=== PATIENT | male | born 1950 | race Hispanic/Latino ===

== ENCOUNTER 2019-05-16 08:53 | Observation (INO) | payer MEDICARE ==
[~2019-05-16] VITALS: Ht 170.2 cm; Wt 108.9 kg
[2019-05-16] MEDS ORDERED: AUGMENTIN 875-1 EACH PO (09:20)
--- NOTE | 2019-05-16 11:00 | NUR ---
PT TO BE ADMITTED, PT AND FAMILY AWARE OF POC, PT VOICES NO COMPLAINTS AT THIS TIME, VITAL SIGNS STABLE
--- OUTSIDE RECORDS SUMMARY | 2019-05-16 11:28 | XMS REPORT ---
Author Author [facility] Address Unknown Phone Unavailable Care Team Providers Care Automatic Outsole Cutter Name Role Phone Unavailable Unavailable Problems This patient has no known problems. Allergies, Adverse Reactions, Alerts This patient has no known allergies or adverse reactions. Medications This patient has no known medications. Encounters Start Date/Time End Date/Time Encounter Type Admission Type Attending Clinicians Care Facility Care Department Encounter ID 2019-05-15 00:00:00 2019-05-15 00:00:00 Emergency E [facility] [id number]
[2019-05-16] MEDS ORDERED: ONDANSETRON HCL INJ 2MG/ML 2ML 2 MG/ML VIAL IV PRN (11:30)
--- NOTE | 2019-05-16 11:36 | NUR ---
[facility] CALLED FOR TRANSPORT 30 MINUTE ETA
--- NOTE | 2019-05-16 12:12 | NUR ---
REPORT TO MAGDY BURDEN REPORT TO [facility] ALL QUESTIONS ANSWERED
--- NOTE | 2019-05-16 12:43 | NUR ---
pt arrived to room 290, awake, alert, ambulating, no signs of distress, will continue to monitor.
[2019-05-16 12:46] VITALS: BP 167/90
[2019-05-16 12:49] VITALS: BP 167/90
[2019-05-16] MEDS ORDERED: PLAVIX75 MG PO (13:50)
[2019-05-16] MEDS ORDERED: TRICOR48 MG PO (13:50)
[2019-05-16] MEDS ORDERED: ISORDIL40 MG PO (13:50)
[2019-05-16] MEDS ORDERED: VITAMIN D35000 UNIT PO (13:50)
[2019-05-16] MEDS ORDERED: ATORVASTATIN CA20 MG PO (13:50)
[2019-05-16] MEDS ORDERED: ASPIRIN325 MG PO (13:50)
[2019-05-16] MEDS ORDERED: RANITIDINE HCL150 MG PO (13:50)
[2019-05-16 15:24] LABS: BASOPHILS % 0.6 % (0.0-1.0); EOSINOPHILS # (AUTO) 0.3 (0.0-0.4); EOSINOPHILS % 4.4 % (0.0-6.0); HEMATOCRIT 39.9 % (38.2-49.6); HEMOGLOBIN 13.6 g/dL (14.0-18.0); LYMPHOCYTES # (AUTO) 1.4 (1.0-3.2); LYMPHOCYTES % 22.4 % (18.0-39.1); MEAN CORPUSCULAR HEMOGLOBIN 31.4 pg (28-32); MEAN CORPUSCULAR HGB CONC 34.1 g/dL (31-35); MEAN CORPUSCULAR VOLUME 92.1 fL (81-99); MONOCYTES # (AUTO) 0.4 (0.2-0.8); MONOCYTES % 6.1 % (4.4-11.3); NEUTROPHILS # (AUTO) 4.3 (2.1-6.9); NEUTROPHILS % 66.2 % (38.7-80.0); PLATELET COUNT 202 x10e3/uL (140-360); RED BLOOD COUNT 4.33 x10e6/uL (4.3-5.7); RED CELL DISTRIBUTION WIDTH 12.6 % (11.7-14.4)
[2019-05-16 15:34] LABS: INR 1.01; PROTHROMBIN TIME 13.8 seconds (11.9-14.5)
[2019-05-16 15:35] LABS: PARTIAL THROMBOPLASTIN TIME 34.9 seconds (23.8-35.5)
--- NOTE | 2019-05-16 15:39 | NUR ---
Dr. Baca informed of pt's elevated blood pressure 184/98; Keven restarted pt's Isordil and ordered PRN PO pain medication. Doctor states to treat pain first and recheck blood pressure afterwards, prior to giving PRN Clonidine.
[2019-05-16 15:45] VITALS: BP 184/98
[2019-05-16] MEDS ORDERED: ACETAMINOPHEN 325 MG TAB PO PRN (16:00)
[2019-05-16] MEDS: ACETAMINOPHEN/CODEINE 300MG - 30MG TAB PO PRN ×2 (16:16→20:50)
[2019-05-16] MEDS: ISOSORBIDE DINITRATE 20 MG TAB PO SCH ×2 (16:16→21:00)
[2019-05-16 17:13] VITALS: BP 154/94
--- NOTE | 2019-05-16 18:47 | History and Physical ---
PRIMARY CARE PHYSICIAN: Vinnie Johns at [facility]. CHIEF COMPLAINT: Nosebleed. HISTORY OF PRESENT ILLNESS: This is a 69-year-old male with past medical history of high cholesterol, CAD and GERD, presented to the ER with complaints of epistaxis that started around 3:00 a.m. this morning. According to the patient, had similar problem on Tuesday about two days ago where he started the nosebleed around 10:00 p.m., went to [facility], but bleeding had resolved by 5:00 a.m., so no further intervention was needed and was sent home to follow up in the ER if the nosebleeds again. He denies any fever, chills, nausea, vomiting, dizziness, shortness of breath or palpitations. He denies any trauma to the nose. No recent seasonal allergy problems, sneezing or drying nose. At the [facility] ER, packing was inserted and was transferred here for further evaluation and management. PAST MEDICAL HISTORY: 1. High cholesterol. 2. CAD status post stent x3. 3. Gastroesophageal reflux disease. PAST SURGICAL HISTORY: 1. Cataract to both eyes. 2. Hernia repair, umbilical. 3. Left heart catheterization. FAMILY MEDICAL HISTORY: Father of lung cancer and mother of diabetes complications. SOCIAL HISTORY: He reports smoking, taking one and a half packs a day. He drinks 3 to 4 beers every week and denies any illicit drug use. ALLERGIES: HE HAS NO KNOWN DRUG ALLERGIES. REVIEW OF SYSTEMS: GENERAL: Headache. HEENT: Headache with nosebleeds and left facial tenderness due to pressure from the packing. LUNGS: No cough or shortness of breath. CARDIOVASCULAR: No chest pain or palpitation. GI: No nausea or vomiting. NEURO: No dizziness. MUSCULOSKELETAL: Moves all extremities. SKIN: Dry and intact. PHYSICAL EXAMINATION: VITAL SIGNS: Temperature is 97.4, pulse is 75, respirations 18, blood pressure is 184/98, pulse ox is 99% on room air. GENERAL: No acute distress. HEENT: Left nasal epistaxis. Left facial tenderness due to pressure. NECK: Supple and midline. LUNGS: Clear to auscultation. HEART: Regular rate and rhythm. GI: Soft and nontender. NEUROLOGIC: Alert, awake, and oriented x3. MUSCULOSKELETAL: Moves all extremities. SKIN: Dry and intact. PSYCH: Calm. LABORATORY DATA: WBC 6.43, hemoglobin 13.6, hematocrit 39.9, and platelet is 202. PT 13.8, INR 1.01, APTT 34.9. EKG; normal sinus rhythm. IMPRESSION AND PLAN: 1. Epistaxis. Packing applied. ENT consulted. Monitor hemoglobin and PT/INR. 2. Accelerated hypertension. The patient and family denies any history of high blood pressure. We will treat with clonidine 0.1 mg as needed. 3. HLD, continue on Lipitor. 4. History of coronary artery disease. Continue Isordil 10 mg p.o. t.i.d. We will hold Plavix and aspirin due to his bleeding. 5. Tobacco abuse. He refused nicotine patch. Cessation discussed. 6. Deep vein thrombosis prophylaxis. No chemical anticoagulation due to acute bleeding. Dictated by LIVIA Gallegos Jaguar Baca MD MY/MODL /[id number] Seen and examined, updated at the bedside. Agree with the findings and plan as documented by LIVIA Villalobos. JOED
--- NOTE | 2019-05-16 19:12 | Consultation ---
DATE OF CONSULTATION: 05/16/2019 Hospital Consultation HISTORY OF PRESENT ILLNESS: I was kindly asked to see this 69-year-old man for evaluation of epistaxis. The patient initially presented to [facility], but the bleeding has stopped spontaneously and he was discharged without treatment. The bleeding then recurred and he was seen at the [facility] where his nose was packed with a rhino rocket and he had persistent bleeding around the packing and he was then transferred to the hospital for admission. His blood pressure was slightly elevated and responded to medical therapy. After admission, his hemoglobin was in the 13 range. PAST MEDICAL HISTORY: Reviewed in detail in the chart. He does not have a history of hypertension prior to this episode. PAST SURGICAL HISTORY: Reviewed in detail in the chart. REVIEW OF SYSTEMS: Otolaryngology review of system sis pertinent for hearing loss. PHYSICAL EXAMINATION: The tympanic membranes and external auditory canals are unremarkable. There is a packing placed in the left side of his nose. There is no bleeding along the posterior pharyngeal wall. There is no palpable cervical adenopathy. The nasal packing was removed. Bleeding points were identified along the floor of the nasal septum in the midportion of the nasal septum. After application of 2% Pontocaine, these were cauterized with silver nitrate. On fiberoptic diagnostic rhinoscopy there was noted to be nasal septal deviation toward the right. No additional bleeding points were identified. The paranasal sinuses were quiescent. ASSESSMENT: 1. Epistaxis. 2. Nasal septal deviation. PLAN: 1. [place] nasal spray two puffs each side of nose t.i.d. 2. Neosporin ointment to each nostril t.i.d. 3. Afrin nasal spray two puffs each side of nose b.i.d. four doses. 4. Follow up H and H in a.m. MD KATI Lea/KATERIN /[id number]
[2019-05-16 20:00] VITALS: BP 194/119
--- NOTE | 2019-05-16 20:08 | NUR ---
Spoke with Dr. Flores regarding Pt c/o continue nasal bleeding, heavier than previously. Dr. Flores informed to tell Pt to blow his nose x3, then spray x3 Afrin sprays in each nostril, wait 3 mins. and repeat sprays.
[2019-05-16] MEDS: CLONIDINE HCL 0.1 MG TAB PO PRN (20:15)
--- NOTE | 2019-05-16 20:40 | NUR ---
Nasal bleeding continues. Dr Flores visits Pt and applies nasal balloon. Instructed nurse to monitor balloon and inform doctor of any health changes.
[2019-05-16 21:00] VITALS: BP 194/119
[2019-05-16] MEDS: SALINE 0.65% NAS SOLN 1 SPRAY BTL SCH ×2 (21:00→22:00)
[2019-05-16] MEDS ORDERED: ISOSORBIDE DINITRATE 10 MG PO SCH (21:00)
[2019-05-16] MEDS: ATORVASTATIN 20 MG TAB PO SCH (21:00)
[2019-05-16] MEDS: NEOMYCIN/POLYMYXIN/BACITRACIN 15 GM TUBE TOP SCH (21:00)
[2019-05-16] MEDS: OXYMETAZOLINE HCL 0.05% NAS 1 SPRAY BTL SCH (21:00)
[2019-05-17] VITALS (8 sets, daily range): BP systolic 97–171; BP diastolic 55–93
[2019-05-17] MEDS: ACETAMINOPHEN/CODEINE 300MG - 30MG TAB PO PRN (00:50)
[2019-05-17] MEDS ORDERED: MORPHINE SULFATE INJ 4 MG/ML INJ 1ML IM ONE ×2 (01:15→01:45)
[2019-05-17] MEDS ORDERED: CLONIDINE HCL 0.1 MG TAB PO ONE (01:15)
[2019-05-17] MEDS ORDERED: PROMETHAZINE 25MG/ NS 50ML (IV) IV ONE (01:15)
--- NOTE | 2019-05-17 01:15 | NUR ---
Spoke with Dr. Flores via phone. Pt states the nasal balloon is causing sever pain and nasal bleeding continues. Dr. Flores ordered x1 dose Clonidine now for BP 169/93, Morphine 5mg x1 IM now, Phenergan 2mg x1, and increase Tylenol#3 to tabs every 4 hours as needed for pain.
--- NOTE | 2019-05-17 03:00 | NUR ---
Pt resting quietly in recliner with eyes closed. No acute distress noted. RR even and unlabored. Call light within reach. No nasal bleeding noted.
[2019-05-17] MEDS ORDERED: ACETAMINOPHEN/CODEINE 300MG - 30MG TAB PO PRN (04:00)
[2019-05-17 05:38] LABS: BASOPHILS # (AUTO) 0.1 (0.0-0.1); BASOPHILS % 0.6 % (0.0-1.0); EOSINOPHILS # (AUTO) 0.2 (0.0-0.4); EOSINOPHILS % 2.9 % (0.0-6.0); HEMATOCRIT 35.5 % (38.2-49.6); HEMOGLOBIN 12.2 g/dL (14.0-18.0); LYMPHOCYTES # (AUTO) 1.8 (1.0-3.2); LYMPHOCYTES % 23.1 % (18.0-39.1); MEAN CORPUSCULAR HEMOGLOBIN 31.9 pg (28-32); MEAN CORPUSCULAR HGB CONC 34.4 g/dL (31-35); MEAN CORPUSCULAR VOLUME 92.7 fL (81-99); MONOCYTES # (AUTO) 0.7 (0.2-0.8); MONOCYTES % 8.2 % (4.4-11.3); NEUTROPHILS # (AUTO) 5.1 (2.1-6.9); NEUTROPHILS % 64.8 % (38.7-80.0); PLATELET COUNT 194 x10e3/uL (140-360); RED BLOOD COUNT 3.83 x10e6/uL (4.3-5.7); RED CELL DISTRIBUTION WIDTH 12.7 % (11.7-14.4)
[2019-05-17 05:55] LABS: ANION GAP 10.7 mmol/L (8-16); BLOOD UREA NITROGEN 18 mg/dL (7-26); BUN/CREATININE RATIO 20 (6-25); CALCIUM 8.8 mg/dL (8.4-10.2); CARBON DIOXIDE 25 mmol/L (22-29); CHLORIDE 106 mmol/L (98-107); EST GLOMERULAR FILTRATION RATE > 60 ML/MIN (60-); GLUCOSE 113 mg/dL (74-118); POTASSIUM 3.7 mmol/L (3.5-5.1); SODIUM 138 mmol/L (136-145)
[2019-05-17] MEDS: SALINE 0.65% NAS SOLN 1 SPRAY BTL SCH ×5 (06:00→22:15)
[2019-05-17] MEDS: ISOSORBIDE DINITRATE 20 MG TAB PO SCH ×5 (08:39→21:45)
[2019-05-17] MEDS: NEOMYCIN/POLYMYXIN/BACITRACIN 15 GM TUBE TOP SCH ×4 (08:46→21:45)
[2019-05-17] MEDS: OXYMETAZOLINE HCL 0.05% NAS 1 SPRAY BTL SCH (08:46)
--- NOTE | 2019-05-17 13:21 | Progress Note ---
DATE: 05/17/2019 CATALYST CONCENTRATION OPERATOR: August Flores MD., with ENT. CHIEF COMPLAINT: Epistaxis. SUBJECTIVE: The patient is seen sitting in the chair, was noted to have small bleeding. He had cauterizing of the nose yesterday evening, but has continued to have some bleeding throughout the night and this morning with packing in place. He denies any fever, chills, dizziness, or shortness of breath. He complained of headache due to the packing. PHYSICAL EXAMINATION: VITAL SIGNS: Temperature 98.1, pulse is 65, respiratory rate is 16, blood pressure 119/66, pulse ox is 95% on room air. GENERAL: No acute distress. HEENT: Left nasal epistaxis. Left facial tenderness and headache. NECK: Supple and midline. LUNGS: Clear to auscultation. HEART: Regular rate and rhythm. GI: Soft and nontender. NEUROLOGIC: Alert, awake, and oriented x3. MUSCULOSKELETAL: Moves all extremities. SKIN: Dry and intact. LABORATORY DATA: WBC 7.93, hemoglobin is 12.2, hematocrit is 35.5, and platelet is 194. Sodium is 138, potassium is 3.7, CO2 is 25, creatinine is 0.90. IMPRESSION: 1. Epistaxis. Status post cauterizing with silver nitrate per ENT. We will continue to monitor H and H closely. Packing in place, but still has some bleeding. 2. Hypertension, now improved. Denies history of high blood pressure. We will treat with clonidine 0.1 mg as needed. 3. High cholesterol. Continue statin. 4. History of coronary artery disease, x3 stents. Continue Isordil. We will hold the Plavix and aspirin due to epistaxis. 5. Tobacco abuse. The patient refused nicotine patch, cessation discussed. 6. Deep vein thrombosis. No chemical anticoagulation due to acute bleeding. PLAN: We will keep packing in place until tomorrow per ENT. We will monitor H and H closely and possible discharge home tomorrow. Dictated by LIVIA Gallegos Jaguar Baca MD MY/MODL /[id number] Seen and examined on 05/17/2019. Agree with the findings and plan as documented by LIVIA Villalobos. FELICIA
[2019-05-17] MEDS: CLONIDINE HCL 0.1 MG TAB PO PRN (16:27)
[2019-05-17] MEDS: ATORVASTATIN 20 MG TAB PO SCH ×2 (21:30→21:45)
--- NOTE | 2019-05-17 21:30 | NUR ---
PATIENT RESTING IN RECLINER, NO SIGNS OF DISTRESS NOTED. PACKING IN LEFT NOSTRIL IN PLACE AND NO DRAINAGE NOTED. PATIENT VOICES NO PAIN AT THIS TIME, CALL LIGHT WITHIN REACH,, WILL CONTINUE TO MONITOR.
[2019-05-18] VITALS: BP 152/80
[2019-05-18 04:00] VITALS: BP 120/57
[2019-05-18 05:39] LABS: HEMATOCRIT 34.1 % (38.2-49.6); HEMOGLOBIN 11.6 g/dL (14.0-18.0)
[2019-05-18] MEDS: SALINE 0.65% NAS SOLN 1 SPRAY BTL SCH ×3 (06:30→14:00)
[2019-05-18 07:13] VITALS: BP 173/85
[2019-05-18 07:20] VITALS: BP 173/85
--- NOTE | 2019-05-18 07:20 | NUR ---
PATIENT OUT VOF BED TO RECLINING CHAIR WATCHING TV, DENIED PAIN AT THIS TIME. PACKING INTACT TO LEFT NOSTRIL. CALL LIGHT AT EASY REACH.
[2019-05-18] MEDS: NEOMYCIN/POLYMYXIN/BACITRACIN 15 GM TUBE TOP SCH ×2 (09:10→15:48)
[2019-05-18] MEDS: ISOSORBIDE DINITRATE 20 MG TAB PO SCH ×2 (09:10→15:48)
--- NOTE | 2019-05-18 09:23 | NUR ---
PACKING REMOVED FROM LEFT NOSTRIL BY DR XIONG. ORDER RECEIVED TO CONTINUE THE NASAL SPRAY ORDERED.
--- NOTE | 2019-05-18 11:05 | NUR ---
PATIENT AMBULATING IN HALLWAY WITH FAMILY MEMBER, NO COMPLAIN VOICED. WILL CONTINUE TO MONITOR.
--- NOTE | 2019-05-18 11:05 | NUR ---
Visit made by the Spiritual Care Department Pastoral Visitor, Tarah Martinez. PV provided pastoral presence, hospitality, and supportive listening. Pastoral Visitor informed pt/family of the scope of Weekend Receptionist Services and availability. LISA MCKEON [employer] Spiritual Care Department O: [phone] Pager: [phone] ([phone] calling from)
[2019-05-18 11:14] VITALS: BP 131/76
[2019-05-18 14:59] VITALS: BP 144/67
[2019-05-18] MEDS ORDERED: ONDANSETRON HCL 4 MG ORAL DISINTEGRATING TAB PO PRN (15:15)
[2019-05-18] MEDS ORDERED: LOPRESSOR25 MG PO ×2 (15:49→15:50)
[2019-05-18] MEDS ORDERED: METOPROLOL TARTRATE 25 MG TAB PO SCH (17:00)
--- NOTE | 2019-05-18 17:30 | NUR ---
PATIENT DISCHARGED HOME. DISCHARGE INSTRUCTIONS, PRESCRIPTION, AND FOLLOW UP GIVEN TO PATIENT, HE VERBALIZED UNDERSTANDING. IV TO RIGHT AC REMOVED WITH TIP INTACT. ALL PERSONAL ITEM TAKEN WITH PATIENT. REFUSED WHEEL CHAIR , BUT WAS ACCOMPANIED BY A HOSPITAL STAFF TO FRONT LOBBY IN STABLE CONDITION.
--- NOTE | 2019-05-19 06:26 | Discharge Summary ---
PRIMARY CARE PHYSICIAN: Osito English MD with [facility] in [place]. FINAL DIAGNOSES: 1. Epistaxis. 2. Hypertension. 3. High cholesterol. 4. History of coronary artery disease. 5. Tobacco abuse. MICROCHIP SPECIALIST: August Flores MD., with ENT. PROCEDURE: Nasal packing and cauterization with silver nitrate for epistaxis. HISTORY: Per HPI. HOSPITAL COURSE: This is a 69-year-old male presented with no recurrent epistaxis. Packing was applied initially, ENT was consulted status post cauterizing with silver nitrate. There was still more bleeding noted. Packing was reinserted and left for greater than 24 hours. Today, it has been removed. Applied Neosporin and normal saline spray. The bleeding has stopped so far. We will monitor and discharge home later on today. H and H have remained stable at 11 today. He remains afebrile, blood pressure elevated but denies history of hypertension. We will start on low-dose metoprolol 25 mg b.i.d. and advised to follow up with his PCP for reevaluation. PHYSICAL EXAMINATION: VITAL SIGNS: Temperature 96.8, pulse is 83, respirations 18, blood pressure 131/76, pulse ox is 98% on room air. GENERAL: No acute distress. HEENT: Normocephalic, atraumatic. NECK: Supple. LUNGS: Clear to auscultation. HEART: Regular rate and rhythm. GI: Soft and nontender. NEUROLOGIC: Alert, awake, and oriented x3. MUSCULOSKELETAL: Moves all extremities. SKIN: Dry and intact. CONDITION AT DISCHARGE: Improved and stable. DISCHARGE MEDICATIONS: Discontinue medications. See medication reconciliation list. FOLLOWUP: Follow up with PCP and ENT with Madelaine next week. TIME SPENT: Total time of discharge is 35 minutes. Dictated by LIVIA Gallegos Jaguar Baca MD MY/MODL /[id number] cc: Osito English MD Seen and examined on 05/18/19. Agree with the findings and plan as documented by LIVIA Villalobos. MTDD
== END 2019-05-18 17:25 | disposition home or self-care (01) ==
LOC: FSED 08:53 → ERHOLD 11:21 → MED/SURG3 12:50
PROVIDERS: ADMIT Internal Medicine; ATTEND Internal Medicine
DX: R04.0 Epistaxis (principal); I10 Essential (primary) hypertension; E78.00 Pure hypercholesterolemia, unspecified; I25.10 Atherosclerotic heart disease of native coronary artery without angina pectoris; K21.9 Gastro-esophageal reflux disease without esophagitis; Z72.0 Tobacco use; J34.2 Deviated nasal septum
CPT/HCPCS: 31238; 36415 ×3; 80048; 80053; 85014; 85018; 85025 ×2; 85610; 85730; 99284; G0378 ×3; J2270; J2550